=== PATIENT | female | born 1960 | race Caucasian/White ===

== ENCOUNTER 2020-10-08 14:10 | Outpatient (REF) | payer BC, SELFPAY ==
--- NOTE | 2020-10-08 13:45 | PAPFT_PTH ---
PATIENT: Estefani Spencer LOC: BI U#:[id number] AGE/SX: 60/F ROOM: RE10/08/[address]: Arielle Mendez : 1960 BED: DIS: 10/08/2020 SPEC #: [id number] RECD: 10/08/20 16:37 STATUS: SIL SÁNCHEZ #: [id number] TRU: 10/08/20 13:[address]: Arielle Mendez DEPT: [facility] Cytology RECD BY: Stefany Recinos Tissues: 1 - CX/ENDOCX FOR PAP SMEARS Procedures: PAP THIN PREP/UVM Screening HPV DNA PROBE Comments: [id number]
--- OUTSIDE RECORDS SUMMARY | 2020-10-08 14:16 | XMS_ITS ---
:1960 Author Care Team Providers Name Role Phone RINA CARREON MD Skirt Clipper [phone] LETICIA CONTRERAS Primary Care Provider [phone] Allergies Code Code System Name Reaction Severity Status Onset 884014 RxNorm Cipro Itching Moderate Active 11/13/2017 Medications Name Status Start Date Stop Date ? ? acyclovir 800 mg tablet Completed 03/14/2012 03/24/20 12 1 Tablet: five times a day Afluria 2222-0346 (PF) 45 Completed ? 2017 mcg(15 mcg x 3)/0.5 mL intramuscular syringe albuterol sulfate HFA 90 Active ? Not wolfgang ilable mcg/actuation aerosol inhaler amoxicillin 875 mg-potassium clavulanate 125 mg tablet Completed 03/02/2016 03/12/2016 1 (one) Tablet: bid - twice daily Bactrim DS 800 mg-160 mg tablet Active ? Not available Take 1 tablet every 12 hours by oral route. cefuroxime axetil 250 mg Completed ? 018 tablet ciprofloxacin 250 mg tablet Completed ? 01/2018 Flagyl 500 mg tablet Completed 12/18/2006 05/11/2009 1 (one) Tablet: Twice daily Fluarix Quad 5684-2964 (PF) 60 Completed ? 0 06/09/2019 mcg (15 mcg x 4)/0.5 mL IM syringe Flucelvax Quad (PF) Completed ? 60 mcg (15 mcg x 4)/0.5 mL IM syringe hydrocodone 5 mg-acetaminophen 500 mg tablet Completed 12/201106/25/2013 1 Tablet: every 4 to 6 hours as needed ibuprofen 600 mg tablet Completed 08/12/2010 11/11/19 11 1 (one) Tablet: three times daily, as needed Prozac 20 mg capsule Completed 04/08/2008 05/11/2009 1 (one) Capsule: Daily Symbicort 160 mcg-4.5 Active ? Not availa ble mcg/actuation HFA aerosol inhaler tobramycin 0.3 %-dexamethasone Completed ? 0 11/12/2017 0.1 % eye drops,suspension Trelegy Ellipta 100 mcg-62.5 Active ? Not available mcg-25 mcg powder for inhalation SARAH (28) 3 mg-0.02 mg tablet Completed 07/29/2007 1 (one) Tablet: daily Zithromax 250 mg tablet Completed 04/28/2011 05/08/19 12 as directed Tablet: daily Problems Name Status Onset Date Source ? Herpes Zoster Active ? History Primary Malignant Neoplasm of Female Breast Active ? History [id number] Deficiency Unknown ? H istory Acute Maxillary Sinusitis Active ? Histor y Allergic Rhinitis Active ? History Chronic Obstructive Lung Disease Active ? History Microscopic Hematuria Active ? History Tingling of Skin Active ? History Dyspnea Active ? History Adult Health Examination Active ? History Gynecologic Examination Active ? History Screening Mammography Active ? History Screening for Cardiovascular System Disease Active ? 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 History Benign Lipomatous Tumor Active ? History Procedure by Method Unknown ? History Procedures Date Name Performed by ? ? Biopsy of Breast Information not avai lable Notes: left ? Carpal Tunnel Surgery Information not av ailable Notes: left 10/09/2017 LDCT, Chest, for Lung Cancer [facility] Radiology (Internal) Screening [address] [place] [address] (Work Place) 06/05/2018 MAMMO, Screening, Tomosynthesis, [facility] Radiology (Internal) Bilateral [address] [place] [id number] (Work Place) 11/18/2018 LDCT, Chest, for Lung Cancer [facility] Radiology (Internal) Screening [address] [place] [address] (Work Place) 02/05/2019 LDCT, Chest, for Lung Cancer [facility] Radiology (Internal) Screening [address] [id number] (Work Place) 06/09/2019 MAMMO, Screening, Tomosynthesis, [facility] Radiology (Internal) Bilateral [address] [id number] (Work Place) 09/16/2019 US, Breast [facility] (Internal) [address] [place] [address] (Work Place) 06/14/2020 MAMMO, Screening, Tomosynthesis, [facility] Radiology (Internal) Bilateral [address] [place] [address] (Work Place) Results Lab Results Date Name Specimen Result Interpretation Description Value Range Status Address ? 06/09/2019 BMP, Serum or S ? g/r 98 mg/dL 74-106 [facility] [place] Plasma mg/dL [facility] : [address] ? ? S High Bun 18 mg/dL 7-17 Final [place] mg/dL [facility] ([facility] : [address] ? ? S ? Crea 0.60 mg/dL 0.52-1. Final [place] 04 Country mg/dL Hospital L ab (Internal) : [address] ? ? S ? Ca 9.5 mg/dL 8.4-10. Final [place] 2 mg/dL [facility] (Internal) : [address] ? ? S ? Na 139 mmol/L 137-145 Final [place] mmol/L [facility] L ab (Internal) : [address] ? ? S ? K 4.4 mmol/L 3.5-5.1 Final [place] mmol/L [facility] L ab (Internal) : [address] ? ? S ? Cl 106 mmol/L 98-107 Final [place] mmol/L [facility] (Internal) : [address] ? ? S ? Tco2 26.0 mmol/L 22.0-30 Final Nort h .0 Country mmol/L Hospital L ab (Internal) : [address] 06/09/2019 Lipid Panel, S ? Chol 165 mg/dL 50-200 [facility] [place] Serum mg/dL [facility] ([facility] : [address] ? ? S ? Trig 62 mg/dL 10-150 Final [place] mg/dL [facility] L [facility] (Internal) : [address] ? ? S ? Hdl 43 mg/dL 40-60 Final [place] mg/dL [facility] L ab (Internal) : [address] ? ? S ? Ldl 110 mg/dL 0-130 Final [place] mg/dL [facility] L ab (Internal) : [address] 11/12/2017 Urinalysis, ? Color Yellow ? ? P _nc Primary Dipstick, Care Reflex Micro [place]: [address], [place] ? ? ? Appearance Clear ? ? P_nc Primary Care [place]: [address], [place] ? ? ? Glucose Normal ? ? P_nc Jazzy salvatore Care [place]: [address], [place] ? ? ? Bilirubin Negative ? ? P_nc Primary Care [place]: [address], [place] ? ? ? Ketones Negative ? ? P_nc P rimary Care [place]: [address], [place] ? ? ? Specific 1.030 ? ? P_nc Pr imary [place] Care [place]: [address], [place] ? ? ? Blood Trace ? ? P_nc Prima ry Care [place]: [address], [place] ? ? ? Ph 5.0 ? ? P_nc Prima ry Care [place]: [address], [place] ? ? ? Protein Negative ? ? P_nc P rimary Care [place]: [address], [place] ? ? ? Urobilinogen 0.2 ? ? P_n c Primary Care [place]: [address], [place] ? ? ? Nitrite negative ? ? P_nc P rimary Care [place]: [address], [place] ? ? ? Leukocyte Negative ? ? P_nc Primary Esterase Care [place]: [address], [place] 05/29/2017 Pathology TISS ? Report results ? Final N orth Study below [facility] L [facility] (Internal) : [address] 05/08/2017 Venipuncture BLD ? Venpn* ? ? Final [facility] L [facility] (Internal) : [address] 05/08/2017 CBC W/ Auto BLD High Wbc 10.5 10*3/uL 5.0-10. F inal North Diff 0 [facility] 10*3/uL Hospital Lab (Internal) : [address] ? ? BLD ? Rbc 4.80 10*6/uL 4.10-5. Final Nor th 30 Country 10*6/uL Hospital Lab (Internal) : [address] t ? ? BLD ? Hgb 13.4 g/dL 12.0-16 Final North .0 g/dL [facility] (Internal) : [address] ? ? BLD ? Hct 43.2 % 37.0-47 Final [place] .0 % [facility] (Internal[facility] : [address] ? ? BLD ? Mcv 90.0 fL 80.0-96 Final North .0 fL [facility] (Internal[facility] : [address] t ? ? BLD ? Mch 27.9 pg 26.0-32 Final North .0 pg [facility] (Internal[facility] : [address] ? ? BLD ? Mchc 31.0 g/dL 31.0-35 Final North .0 g/dL [facility] (Internal) : [address] ? ? BLD ? Rdw 12.6 % 11.5-14 Final North .5 % [facility] (Internal) : [address] ? ? BLD ? Plt 200 10*3/uL 130-450 Final Nort h 10*3/uL [facility] (Internal) : [address] t ? ? BLD ? Anc 6.53 10*3/uL ? Final Nort h [facility] (Internal) : [address] t ? ? BLD ? Neutro 61.9 % 40.0-75 Final North .0 % [facility] (Internal[facility] : [address] ? ? BLD ? Lymph 31.0 % 20.0-50 Final North .0 % [facility] (Internal[facility] : [address] ? ? BLD ? [place] 5.5 % 2.0-10. Final North 0 % [facility] ([facility] : [address] ? ? BLD Low Eos 0.7 % 1.0-6.[address] [facility] L ab (Internal) : [address] ? ? BLD ? Baso 0.6 % 0.0-1.0 Final [place] % [facility] L ab (Internal) : [address] ? ? BLD ? Ig 0.3 % 0.0-0.[address] [facility] L ab (Internal) : [address] 01/02/2017 Venipuncture BLD ? Venpn* ? ? Final [facility] L ab (Internal) : [address] 01/02/2017 CMP, Serum or S ? g/r 95 mg/dL 74-106 [facility] [place] Plasma mg/dL [facility] ([facility] : [address] ? ? S ? Bun 16 mg/dL 7-17 Final [place] mg/dL [facility] L ab (Internal) : [address] ? ? S ? Crea 0.60 mg/dL 0.52-1. Final North 04 [facility] mg/dL Hospital L ab (Internal) : [address] ? ? S ? Ca 9.9 mg/dL 8.4-10. Final North 2 mg/dL [facility] Hospital L ab (Internal) : [address] ? ? S ? Na 140 mmol/L 137-145 Final [place] mmol/L [facility] L ab (Internal) : [address] ? ? S ? K 3.7 mmol/L 3.5-5.1 Final [facility] mmol/L [facility] ([facility] : [address] ? ? S ? Cl 102 mmol/L 98-107 Final [place] mmol/L [facility] L ab (Internal) : [address] ? ? S ? Tco2 28.0 mmol/L 22.0-30 Final Nort h .0 Country mmol/L Hospital L ab (Internal) : [address] ? ? S ? Tp 8.1 g/dL 6.3-8.2 Final [facility] g/dL [facility] ([facility] : [address] ? ? S ? Alb 4.5 g/dL 3.5-5.0 Final [place] g/dL [facility] L ab (Internal) : [address] ? ? S ? Tbil 0.6 mg/dL 0.2-1.3 Final [place] mg/dL [facility] L ab (Internal) : [address] ? ? S ? Alp 69 U/L 50-136 Final [place] U/L [facility] L ab (Internal) : [address] ? ? S ? Alt (Sgpt) 35 U/L 9-52 Final [place] U/L [facility] L ab (Internal) : [address] ? ? S ? Ast (Sgot) 23 U/L 14-36 Final [place] U/L [facility] L ab (Internal) : [address] 01/02/2017 Magnesium, S ? mg 2.1 mg/dL 1.6-2.3 Final [place] QN, Serum or mg/dL Coun [facility] L ab (Internal) : [address] 01/02/2017 TSH, Serum or S ? Tsh 1.09 0.47-4. Final [place] Plasma u[IU]/mL 68 [facility] u[IU]/[facility] Lab L (Internal) : [address] ? Venipuncture ? Location Right ? ? P _nc Primary Antecubital Care [place]: [address], [place] ? ? ? Needle 21g ? ? P_nc Prim edward Vacutainer Care [place]: [address], [place] ? ? ? Number of 1 ? ? P_nc P rimary Attempts Care [place]: [address], [place] ? ? ? Successful Yes ? ? P_nc Primary Care [place]: [address], [place] ? ? ? Dressing Pressure ? ? P_nc Primary Band-aid Care Applied [place]: [address], [place] ? ? ? Initials kk ? ? P_nc Pr imary Care [place]: [address], [place] ? Fecal Occult ? No ? ? ? P_nc Primary Blood X 3, observation C are Stool recorded. [place]: [address], [place] ? Urinalysis, ? Color Yellow ? ? P_nc Primary Dipstick, Care Reflex Micro [place]: [address], [place] ? ? ? Appearance Clear ? ? P_nc Primary Care [place]: [address], [place] ? ? ? Glucose Normal ? ? P_nc Jazzy salvatore Care [place]: [address], [place] ? ? ? Bilirubin Negative ? ? P_nc Primary Care [place]: [address], [place] ? ? ? Ketones Negative ? ? P_nc P rimary Care [place]: [address], [place] ? ? ? Specific 1.030 ? ? P_nc Pr imary [place] Care [place]: [address], [place] ? ? ? Blood Trace ? ? P_nc Prima ry Care [place]: [address], [place] ? ? ? Ph 5.5 ? ? P_nc Prima ry Care [place]: [address], [place] ? ? ? Protein Negative ? ? P_nc P rimary Care [place]: [address], [place] ? ? ? Urobilinogen 0.2 ? ? P_n c Primary Care [place]: [address], [place] ? ? ? Nitrite negative ? ? P_nc P rimary Care [place]: [address], [place] ? ? ? Leukocyte Negative ? ? P_nc Primary Esterase Care [place]: [address], [place] Past Encounters 06/14/2020 Adult Health Examination; Screening Mamm ography Leticia Contreras [facility]-C[facility] [address] [facility] [place] [phone], Ph. 06/11/2020 Laceration of Finger Leticia Contreras PA-C: [address] [facility] [place] [address], Ph. 03/08/2020 Chronic Obstructive Lung Disease Rina Carreon MD: [address] [place] [address], Ph. 06/09/2019 Adult Health Examination; Diabetes Melli tus Screening; Screening for Cardiovascular System Disease JAZZMINE TsaiC: [address] [place] [phone], Ph. Social History Tobacco Smoking Status Former Smoker Notes: Quit in 2004, started age 16 1.5ppd Vaccine List Vaccine Type COVID-19, mRNA, LNP-S, PF, 100 mcg/0.5 m L dose 08/10/2020 influenza, injectable, quadrivalent 03/11/2019 influenza, injectable, quadrivalent, pre servative free 03/08/2020?0.5 mL influenza, seasonal, injectable 03/07/2017 02/23/2018?0.5 mL influenza, seasonal, injectable, preserv ative free 04/08/2008 novel [id number], all formulation s 05/11/2009?0.2 mL pneumococcal polysaccharide [id number] 07/23/2017 rubella Td (adult), adsorbed 06/07/2004 06/11/2020?0.5 mL Tdap 04/24/2012 Plan of Care Reminders Provider Appointments None ? ? recorded. Lab None ? ? recorded. Referral None ? ? recorded. Procedures None ? ? recorded. Surgeries None ? ? recorded. Imaging None ? ? recorded. Vitals 06/14/2020 09:00AM CPE 40 Height Weight BMI Blood Pressure 159.39 cm 66.37 kg 26.1 kg/m2 110/70 mm[Hg] 03/08/2020 03:00PM Follow Up 30 Height Weight BMI Blood Pressure 159.39 cm 69.2 kg 27.2 kg/m2 118/61 mm[Hg] 06/09/2019 09:00AM CPE 40 Height Weight BMI Blood Pressure 159.39 cm 58.51 kg 23 kg/m2 110/70 mm[Hg] 02/05/2019 09:30AM Follow Up 30 Height Weight BMI Blood Pressure 159.39 cm 65.5 kg 25.8 kg/m2 138/76 mm[Hg] 11/18/2018 09:00AM Follow Up 30 Height Weight BMI Blood Pressure 159.39 cm 68.1 kg 26.8 kg/m2 120/62 mm[Hg] 06/05/2018 09:00AM CPE 40 Height Weight BMI Blood Pressure 159.39 cm 65.41 kg 25.7 kg/m2 122/78 mm[Hg] 11/12/2017 04:00PM Acute 30 Height Weight BMI Blood Pressure 160.02 cm 65.32 kg 25.5 kg/m2 120/80 mm[Hg] 07/23/2017 Height Weight Blood Pressure 160.02 cm 64.86 kg 130/80 mm[Hg] 06/21/2017 Height Weight Blood Pressure 160.02 cm 64.86 kg 120/76 mm[Hg] 05/10/2017 Height Weight Blood Pressure 159 cm 65.77 kg 120/70 mm[Hg] 01/29/2017 Height Weight Blood Pressure 159 cm 67.59 kg 110/70 mm[Hg] 05/09/2016 Height Weight Blood Pressure 159 cm 64.41 kg 125/80 mm[Hg] 03/02/2016 Height Weight Blood Pressure 159 cm 66.22 kg 130/70 mm[Hg] 06/01/2014 Blood Pressure 110/60 mm[Hg] 01/07/2014 Height Weight Blood Pressure 159 cm 67.04 kg 110/64 mm[Hg] 09/05/2013 Height Weight Blood Pressure 159 cm 68.04 kg 136/68 mm[Hg] 07/04/2013 Blood Pressure 136/64 mm[Hg] 06/25/2013 Weight Blood Pressure 65.54 kg 100/58 mm[Hg] 10/09/2012 Height Weight Blood Pressure 159 cm 68.13 kg 122/64 mm[Hg] 03/14/2012 Height Weight Blood Pressure 159 cm 67.13 kg 124/74 mm[Hg] 09/20/2011 Height Weight Blood Pressure 159 cm 65.32 kg 126/64 mm[Hg] 05/30/2011 Blood Pressure 104/60 mm[Hg] 04/28/2011 Height Weight Blood Pressure 159 cm 63.5 kg 126/76 mm[Hg] 04/19/2011 Height Weight Blood Pressure 159 cm 63.5 kg 118/60 mm[Hg] 08/24/2010 Height Weight Blood Pressure 160.02 cm 68.95 kg 126/62 mm[Hg] 08/12/2010 Weight Blood Pressure 69.4 kg 108/64 mm[Hg] 05/11/2009 Weight Blood Pressure 70.76 kg 100/60 mm[Hg] 04/08/2008 Weight Blood Pressure 68.95 kg 110/58 mm[Hg] 12/18/2006 Weight Blood Pressure 64.86 kg 110/62 mm[Hg] 02/14/2005 Height Weight Blood Pressure 160.02 cm 61.69 kg 100/54 mm[Hg] 01/24/2005 Height Blood Pressure 160.02 cm 98/70 mm[Hg]
== END 2020-10-08 14:11 | disposition home or self-care (01) ==
LOC: LBN 14:10
PROVIDERS: Visit Provider Obstetrics & Gynecology Gynecology
DX: Z12.4 Encounter for screening for malignant neoplasm of cervix (principal); Z11.51 Encounter for screening for human papillomavirus (HPV)
CPT/HCPCS: 88142; 87624